=== PATIENT | female | born 1975 | race Caucasian/White ===

== ENCOUNTER 2024-11-30 18:44 | Emergency (ER) | payer MEDICAID, OTHER ==
[~2024-11-30] VITALS: Ht 177.8 cm; Wt 72.7 kg
[2024-11-30 19:24] VITALS: TEMP 98.2
[2024-11-30 20:04] LABS: BASOPHILS % (AUTO) 0.4 % (0.0-2.0); EOSINOPHILS % (AUTO) 1.9 % (1.0-6.0); HEMATOCRIT 35.1 % (36-46); HEMOGLOBIN 10.9 g/dL (12.0-16.0); LYMPHOCYTES # (AUTO) 2.1 K/uL (1.0-4.8); LYMPHOCYTES % (AUTO) 24.9 % (22.0-44.0); MEAN CORPUSCULAR HEMOGLOBIN 25.4 pg (26.0-34.0); MEAN CORPUSCULAR HGB CONC 31.2 G/dL (31.0-37.0); MEAN CORPUSCULAR VOLUME 82 fL (80-100); MONOCYTES # (AUTO) 0.7 K/uL (0.1-1.0); MONOCYTES % (AUTO) 8.8 % (2.0-9.0); NEUTROPHILS # (AUTO) 5.5 K/uL (1.8-7.7); PLATELET COUNT (AUTO) 397 K/uL (150-450); RED CELL DISTRIBUTION WIDTH 27.4 % (11.5-14.5); WHITE BLOOD COUNT (AUTO) 8.5 K/uL (4.5-11.0)
[2024-11-30 20:15] LABS: ANION GAP 13 mmol/L (8-16); CALCIUM, TOTAL 9.1 mg/dL (8.8-10.5); CARBON DIOXIDE 27 mmol/L (22-29); CHLORIDE 99 mmol/L (98-107); CREATININE 0.75 mg/dL (0.60-1.30); GLOMERULAR FILTR. RATE CALC > 60 mL/min (>60); GLUCOSE,RANDOM 131 mg/dL (70-110); POTASSIUM 4.1 mmol/L (3.5-5.1); SODIUM SERUM 139 mmol/L (136-145); UREA NITROGEN, BLOOD 20 mg/dL (7-18)
[2024-11-30 20:18] LABS: ALBUMIN 3.3 g/dL (3.4-5.0); BILIRUBIN,DIRECT 0.1 mg/dL (0.00-0.20); BILIRUBIN,TOTAL 0.3 mg/dL (0.1-1.0); TOTAL PROTEIN, SERUM 7.4 g/dL (6.4-8.2)
[2024-11-30 20:40] LABS: RBC MORPHOLOGY COMMENT ABNORMAL RBC MORPH
[2024-11-30] MEDS: BACITRACIN 28 GM OINTMENT TP ONE (21:30)
[2024-11-30] MEDS: HYDROCODONE/ACETAMINOPHEN 5-325 MG TABLET PO ONE (21:30)
[2024-11-30] MEDS ORDERED: CEPH-558 PO (21:30)
[2024-11-30] MEDS: CEPHALEXIN MONOHYDRATE 500 MG CAPSULE PO ONE (21:30)
[2024-11-30] MEDS ORDERED: TRAM50TA5 PO (21:30)
[2024-11-30] MEDS: PERTUSS(ACELL),DIPH,TET/PF 0.5 ML SYRINGE [ADULT] IM. ONE (21:30)
[2024-11-30 21:34] VITALS: BP 128/77; PULSE 71; RESP 14; O2SAT 98
== END 2024-11-30 21:50 | disposition home or self-care (01) ==
LOC: EMS 18:44
DX: T21.24XA Burn of second degree of lower back, initial encounter (principal); F17.210 Nicotine dependence, cigarettes, uncomplicated; X10.0XXA Contact with hot drinks, initial encounter; Y93.89 Activity, other specified; Y92.89 Other specified places as the place of occurrence of the external cause; Y99.8 Other external cause status
CPT/HCPCS: 16000; 80048; 80076; 85025; 90471; 90715; 99283